=== PATIENT | female | born 1970 | race Caucasian/White ===

== ENCOUNTER → 2018-08-03 | Outpatient (CLI) | payer BC ==
--- NOTE | 2018-08-03 08:59 | KCIC ---
EXAM: Lumbar spine MRI without contrast. HISTORY: Lower back pain. TECHNIQUE: Multiplanar, multisequence magnetic resonance imaging of the lumbar spine was performed without contrast. COMPARISON: None. Note is made of a reported study performed 05/13/2012 is not available for comparison at the time of dictation. FINDINGS: There is minimal grade 1 anterolisthesis of L4 and L5, measuring 1 to 2 mm. There is disc desiccation at L4-L5 and L5-S1. The vertebral bodies are normal in height and demonstrate normal marrow signal intensity. There is no suspicious osseous lesion. There is no acute or subacute fracture. The conus terminates at L1-L2. At L1-L2, there is a minimal shallow right paracentral disc protrusion. There is no stenosis. At L2-L3, there is minimal left greater than right facet arthropathy. There is no stenosis. At L3-L4, there is minimal right and mild left facet arthropathy. There is no stenosis. At L4-L5, there is a right foraminal to extraforaminal disc protrusion and endplate remodeling. There is minimal bilateral facet arthropathy. There is mild right foraminal stenosis with abutment of the exiting right L4 nerve root. At L5-S1, there is a left foraminal to extra foraminal disc protrusion and endplate remodeling. There is mild left facet arthropathy. There is mild left foraminal stenosis with abutment of the exiting left L5 nerve root. IMPRESSION: Multilevel degenerative change involving the lumbar spine, described in detail above. This is associated with mild right foraminal stenosis and abutment of the exiting right L4 nerve root at L4-L5 and mild left foraminal stenosis with abutment of the exiting left L5 nerve root at L5-S1. Electronically signed by: Nubia Blackmon MD (08/03/2018 8:56 AM) [place] [id number]
== END | disposition home or self-care (01) ==
LOC: KCIC MRI 07:34
DX: M47.816 Spondylosis without myelopathy or radiculopathy, lumbar region (principal); M48.07 Spinal stenosis, lumbosacral region; M51.27 Other intervertebral disc displacement, lumbosacral region; M12.88 Other specific arthropathies, not elsewhere classified, other specified site
CPT/HCPCS: 72148

== ENCOUNTER → 2020-02-07 | Outpatient (CLI) | payer BC ==
[~2020-02-07] MED LIST: ATOR20TA PO; DULA0.75 SQ; VALS320T2 PO; methylPREDNISolone ACETATE 40 MG/ML VIAL. ONE; methylPREDNISolone ACETATE 80 MG/ML VIAL. ONE
--- NOTE | 2020-02-07 12:56 | PDOC1 ---
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 Patient describes pain is constant sharp in the back throbbing and shooting into the right lower extremity posterior gluteus posterior lateral thigh and anterior lateral thigh on the right side primarily patient reports is worse with changing positions getting up from a seated position walking or standing generally better with sitting or laying down but has been waking her from sleep about 2-3 times a night patient reports it can affect her bowel bladder control but no incontinence just some increased frequency patient reports it does affect her walking significantly when she can she will use a cart or walker at work but often times she is unable to do so. Patient is tried Tylenol as well as [id number] ibuprofen and Aleve without significant decrease in pain. Patient rates her disability rating 0-10 10 being the worst is a 3 with family responsibilities social activity self-care life support activities to with recreation 6 with occupational activities and to a sexual behavior patient did have MRI scan of the lumbar spine showing multilevel degenerative change with L4-5 right foraminal extraforaminal disc protrusion and endplate remodeling with a mild right foraminal stenosis with abutment of the exiting right L4 nerve root L5-S1 shows left foraminal to extraforaminal disc protrusion and endplate remodeling with mild left facet arthropathy with mild left foraminal stenosis with abutment of the exiting left L5 nerve root. PAST MEDICAL HISTORY: PMH: Type 2 diabetes, shortness of breath, hypertension, obesity, hyperlipidemia, vascular insufficiency, arthritis, psoriasis PREVIOUS SURGERIES: Past Surgical Hx: Tonsillectomy, cholecystectomy, hysterectomy CURRENT MEDICATIONS: Current Meds: Active Scripts Medications Dose Route/Sig Max Daily Dose Days Date Category Trulicity (Dulaglutide) 0.75 Mg/0.5 Ml Pen.injctr 0.5 Mg SQ WEEKLY 02/07/20 Reported Lipitor (Atorvastatin Calcium) 20 Mg Tablet 20 Mg PO HS 02/07/20 Reported Diovan (Valsartan) 320 Mg Tablet 320 Mg PO DAILY 02/07/20 Reported ALLERGIES; Allergies: Coded Allergies: No Known Drug Allergies (Unverified , 02/07/20) FAMILY HISTORY: Family Hx: Cancers, diabetes SOCIAL HISTORY: Social Hx: Patient does not gallo alcohol does not smoke not using illegal illicit or recreational drugs is single lives locally in [place] 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 REVIEW OF SYSTEMS: ROS: Positive for those items mentioned in history of present illness, all systems are reviewed, otherwise negative, is complete full and well-documented on patient's chart PHYSICAL EXAM: VS: Pressure 150/88 pulse 80 respiration 20 temperature 98.1 F height is 5 foot 6 inches weight is 368 pounds PE: PHYSICAL EXAMINATION: GENERAL: The patient is awake, alert, oriented, appropriate, very pleasant demeanor HEENT: Shows normocephalic, atraumatic. Extraocular movements are intact and symmetrical. Oral cavity: Mucous membranes moist and pink. Dentition is intact. NECK: Shows anterior throat supple without palpable lymphadenopathy noted. Swallow reflex symmetrical. CHEST: Shows normal on inspection. Breath sounds are clear bilaterally, no rales rhonchi or wheezes auscultated. HEART: Shows S1, S2 clear. No murmurs auscultated. ABDOMEN: Soft, nontender, nondistended, obese. No palpable organomegaly is noted. No rebound or guarding demonstrated. BACK: Shows spine grossly in the midline. Normal-appearing cervical lordotic curvature. There is slightly increased thoracic kyphosis, some minor flattening of the lumbar lordotic curvature. Lumbar paraspinous muscles show symmetrical on inspection, on palpation shows some moderate tenderness diffusely throughout the upper, middle and lower distribution of the paraspinous muscles bilaterally and also into the lower thoracic paraspinous musculature, firm and tender, but without specific trigger points, without radiation of pain. The patient has good rotational motion of the lumbar spine, both laterally as well as extension and flexion without significant difficulty. No tenderness over the spinous processes, sacrum or sacroiliac regions. EXTREMITIES: Lower extremities show deep tendon reflexes 1+ in the patellar and tendo calcaneus tendons. Motor exam is 4 on a scale of 5 with right dorsiflexion, extension, quadriceps and hamstring flexion and 4/5 on the left. Peripheral pulses are 1+ posterior tibial. No peripheral edema is noted bilaterally. Lower extremities are warm and dry to touch, equal in color and appearance. Straight leg raise noted to be positive on the right about 35 degrees, left side is negative. Gaenslen's and Porfirio's maneuvers are negative as well. The patient is able to stand, difficulty standing on her toes that she loses balance easily, patient using a walker to ambulate does have a bit of a shuffling gait. The right or left lower extremity significantly with ambulation. SKIN: Shows warm and dry, good turgor. No edema. No sores, rashes or bruising throughout. IMPRESSION: Impression: 49-year-old female with approximate 2-year history low back and right lower extremity pain MRI scan lumbar spine as noted Obesity Arthritis Hypertension Diabetes Plan: Options were discussed with the patient including conservative medical management physical therapies interventional techniques. Patient would like to interventional techniques we discussed a lumbar epidural steroid injection using descriptions as well as anatomical models to describe the procedure. Risks were discussed including but not limited to: Bleeding, infection, possibility of epidural hematoma and subsequent neurological compromise, dural puncture, headaches, spinal cord and/or nerve damage, side effects of steroid medication, and poor results regarding pain control. Patient understands wished to proceed. Patient return to clinic in approximate 2 weeks for follow-up was counseled as to return appointment activity level and side effects to be aware of. Procedure is lumbar epidural steroid injection under local anesthetic using sterile prep and drape at the L4-5 level using C-arm fluoroscopic guidance in both AP and lateral views medications injected is 120 mg Depo-Medrol + 10 mL preservative-free normal saline and 2 mL contrast- condition at discharge is stable patient tolerated procedure well had no complications. AVELINA FREEMAN MD Feb 07, 2020 12:56
== END | disposition home or self-care (01) ==
LOC: PNCL 09:14
PROVIDERS: ATTEND Anesthesiology
DX: M48.061 Spinal stenosis, lumbar region without neurogenic claudication (principal); I10 Essential (primary) hypertension; E11.9 Type 2 diabetes mellitus without complications; E78.5 Hyperlipidemia, unspecified; M19.90 Unspecified osteoarthritis, unspecified site; Z90.49 Acquired absence of other specified parts of digestive tract; Z79.899 Other long term (current) drug therapy; Z98.890 Other specified postprocedural states; Z83.3 Family history of diabetes mellitus
CPT/HCPCS: 62323; J1030; J1040

== ENCOUNTER → 2020-02-28 | Outpatient (CLI) | payer BC ==
[~2020-02-28] MED LIST changes: +IOHEXOL 180 MG/ML 10 ML VIAL. ONE
--- NOTE | 2020-02-28 09:53 | PDOC ---
Progress Note - Pain Clinic Date of Service: DOS: DATE: 02/28/20 TIME: 09:50 Diagnosis: Dx: Lumbar radiculopathy with lumbar spinal stenosis lumbar degenerative disc disease History or Present Illness: HPI: 49-year-old female returns follow-up status post lumbar epidural steroid injection x1. Patient reports about 90% improvement for the first week and a half and pain is beginning to return gradually in the low back bilateral lower extremities posterior gluteus posterior lateral thighs lateral anterior thighs medial thighs worse on the right than left are present bilaterally patient ports a tight feeling in the back with shooting and stabbing pain sometimes burning and cramping in the legs as well. Patient which is worse with walking standing changing positions decision much better with walking distances doing household activities well at work activities patient reports still better with sitting or laying down does not awaken her from sleep at night patient reports her pain is a 7 on a scale of 10 is worse over the past week 3 on average 1 its least is a 3 today. Patient reports no new motor or sensory deficits no new changes or other concerns. Physical Exam: VS: Blood pressure is 134/63 pulse 81 respirations 18 temperature 97.4 F height is 5 feet 6 inches weight is 354 pounds PE: PHYSICAL EXAMINATION: GENERAL: The patient is awake, alert, oriented, appropriate, very pleasant demeanor HEENT: Shows normocephalic, atraumatic. Extraocular movements are intact and symmetrical. Oral cavity: Mucous membranes moist and pink. NECK: Shows anterior throat supple without palpable lymphadenopathy noted. Swallow reflex symmetrical. CHEST: Shows normal on inspection. Breath sounds are clear bilaterally, no rales rhonchi or wheezes. HEART: Shows S1, S2 clear. No murmurs auscultated. ABDOMEN: Soft, nontender, nondistended, obese. No palpable organomegaly is noted. No rebound or guarding demonstrated. BACK: Shows spine grossly in the midline. Normal-appearing cervical lordotic curvature. There is slightly increased thoracic kyphosis, some minor flattening of the lumbar lordotic curvature. Lumbar paraspinous muscles show symmetrical on inspection, on palpation shows some moderate tenderness diffusely throughout the upper, middle and lower distribution of the paraspinous muscles bilaterally, but without specific trigger points, without radiation of pain. The patient has good rotational motion of the lumbar spine, both laterally as well as extension and flexion without significant difficulty. No tenderness over the spinous processes, sacrum or sacroiliac regions. EXTREMITIES: Lower extremities show deep tendon reflexes 1+ in the patellar and tendo calcaneus tendons. Motor exam is 4 on a scale of 5 with right dorsiflexion, extension, quadriceps and hamstring flexion and 4/5 on the left. Peripheral pulses are 1+ posterior tibial. No peripheral edema is noted bilaterally. Lower extremities are warm and dry to touch, equal in color and appearance. SKIN: Shows warm and dry, good turgor. No edema. No sores, rashes or bruising throughout. Procedure: Procedure: Options were discussed with the patient. Patient chart was reviewed as her current medication regimen updated current review of systems updated today as well. We will proceed with a second in the series lumbar epidural steroid injection today with fluoroscopic guidance. Risks were discussed including but not limited to: Bleeding, infection, possibility of epidural hematoma and subsequent neurological compromise, dural puncture, headaches, spinal cord and/or nerve damage, side effects of steroid medication, and poor results regarding pain control. Patient understands wished to proceed. Patient return to clinic in approximate 2 weeks for follow-up was counseled as to return appointment activity level and side effects to be aware of. Medication Injected: Med Injected: Procedure is lumbar epidural steroid injection under local anesthetic using sterile prep and drape at the L4-5 level using C-arm fluoroscopic guidance in both AP and lateral views medications injected is 120 mg Depo-Medrol + 10 mL preservative-free normal saline and 2 mL contrast- condition at discharge is stable patient tolerated procedure well had no complications. Condition at Discharge: Condition at Discharge: Condition at discharge is stable patient tolerated the procedure well had no complications. AVELINA FREEMAN MD Feb 28, 2020 09:53
== END ==
LOC: PNCL 09:12
PROVIDERS: ATTEND Anesthesiology
DX: M51.16 Intervertebral disc disorders with radiculopathy, lumbar region (principal); M48.061 Spinal stenosis, lumbar region without neurogenic claudication; I10 Essential (primary) hypertension; E78.5 Hyperlipidemia, unspecified; E11.9 Type 2 diabetes mellitus without complications; Z79.899 Other long term (current) drug therapy; Z79.84 Long term (current) use of oral hypoglycemic drugs
CPT/HCPCS: 62323; J1030; J1040; Q9965